=== PATIENT | female | born 1990 | race Caucasian/White ===

== ENCOUNTER 2017-06-25 14:52 | Emergency (ER) | payer OTHER ==
--- NOTE | 2017-06-25 15:18 | CPEKG ---
Heart Rate: 73 RR Interval: 822 P-R Interval: 140 QRSD Interval: 74 QT Interval: 392 QTC Interval: 432 P [place]: 38 QRS [place]: 51 T Wave [place]: 0 EKG Severity - NORMAL ECG - EKG Impression: SINUS RHYTHM Electronically Signed By: Jana Alvarez 25-Jun-2017 19:40:39
--- NOTE | 2017-06-25 16:09 | EDPHY ---
H & P Time Seen by Provider: 06/25/17 15:59 HPI/ROS: CHIEF COMPLAINT: Chest pain HISTORY OF PRESENT ILLNESS: 27-year-old female presents with chest pain. Onset of chest discomfort this morning while sitting at her desk. The pain is a pressure-like sensation throughout her chest. The pressure increases with deep inspiration. No associated symptoms and no known alleviating factors. No prior history of similar symptoms. She had a 24 hour Holter monitor and echocardiogram last week at [facility] because of palpitations. The results are pending. Cardiac risk factors negative. Nonsmoker; no family history; no hypertension, diabetes or hypercholesterolemia. REVIEW OF SYSTEMS: Constitutional: No fever, no chills Eyes: No visual changes ENT: No sore throat Respiratory: No cough, no shortness of breath Gastrointestinal: No nausea, no vomiting, no abdominal pain Genitourinary: no dysuria Musculoskeletal: No leg pain or swelling Skin: No rash Neurological: No headache, no weakness Psychiatric: No depression Past Medical/Surgical History: Denies Family history: No clotting disorder or cardiac disease Social History: Single, no recent alcohol PCP Dr. Billie Otero Smoking Status: Never smoked Physical Exam: General Appearance: Alert, pleasant Eyes: Pupils equal and round, no conjunctival pallor or injection ENT, Mouth: Mucous membranes moist Neck: Normal inspection Respiratory: Lungs are clear to auscultation Cardiovascular: Regular rate and rhythm, no murmur Gastrointestinal: Abdomen is soft and nontender Neurological: A&O, nonfocal, normal gait Skin: Warm and dry, no rash Extremities: Nontender, no pedal edema Psychiatric: Mood and affect normal Constitutional: Initial Vital Signs Temperature (C) 37.1 C 06/25/17 14:58 Heart Rate 81 06/25/17 14:58 Respiratory Rate 14 06/25/17 14:58 Blood Pressure 145/100 H 06/25/17 14:58 O2 Sat (%) 100 06/25/17 14:58 O2 Delivery Mode Room Air Allergies/Adverse Reactions: No Known Allergies Allergy (Unverified 07/22/12 14:52) Home Medications: Medication Instructions Recorded Medroxyprogesterone Acet 0 mg IM Q84D 05/21/14 [Depo-Provera] Medical Decision Making - Diagnostics EKG Interpretation: EKG reveals normal sinus rhythm, rate 73, normal axis and intervals, no ST or T- segment changes. INTERPRETATION: This is interpreted by me as a normal EKG. Imaging Results: Imaging Impressions Chest X-Ray 06/25/17 16:07 Impression: Negative chest. ED Course/Re-evaluation: This patient presents with atypical chest pain. After careful consideration and evaluation, I find no evidence of acute coronary syndrome. The patient has no risk factors for coronary disease, normal EKG and normal studies. In addition, I feel that I can safely exclude pulmonary embolism, with normal vital signs, normal oxygen saturation and normal D-dimer. In addition there is no evidence of pneumothorax, pneumonia, aortic dissection. Toradol 15 mg IV given for chest pain. Laboratory and x-ray results discussed with the patient. She feels much better on discharge and the chest discomfort has completely resolved. Differential Diagnosis: Differential diagnosis includes though it is not limited to pneumonia, pneumothorax, pulmonary embolism, aortic dissection, pericarditis, acute coronary syndrome. - Data Points Laboratory Results: Laboratory Results 06/25/17 16:10 06/25/17 16:10 06/25/17 06/25/17 06/25/17 16:10 16:10 16:10 WBC 5.59 10^3/uL 10^3/uL (3.80-9.50) RBC 4.23 10^6/uL 10^6/uL (4.18-5.33) Hgb 13.8 g/dL g/dL (12.6-16.3) Hct 39.4 % % (38.0-47.0) MCV 93.1 fL fL (81.5-99.8) MCH 32.6 pg pg (27.9-34.1) MCHC 35.0 g/dL g/dL (32.4-36.7) RDW 11.5 % % (11.5-15.2) Plt Count 225 10^3/uL 10^3/uL (150-400) MPV 9.9 fL fL (8.7-11.7) Neut % (Auto) 55.7 % % (39.3-74.2) Lymph % (Auto) 37.9 % % (15.0-45.0) Harmon % (Auto) 5.0 % % (4.5-13.0) Eos % (Auto) 0.7 % % (0.6-7.6) Baso % (Auto) 0.5 % % (0.3-1.7) Nucleat RBC Rel Count 0.0 % % (0.0-0.2) Absolute Neuts (auto) 3.11 10^3/uL 10^3/uL (1.70-6.50) Absolute Lymphs (auto) 2.12 10^3/uL 10^3/uL (1.00-3.00) Absolute Monos (auto) 0.28 10^3/uL L 10^3/uL (0.30-0.80) Absolute Eos (auto) 0.04 10^3/uL 10^3/uL (0.03-0.40) Absolute Basos (auto) 0.03 10^3/uL 10^3/uL (0.02-0.10) Absolute Nucleated RBC 0.00 10^3/uL 10^3/uL (0-0.01) Immature Gran % 0.2 % % (0.0-1.1) Immature Gran # 0.01 10^3/uL 10^3/uL (0.00-0.10) D-Dimer 0.27 ug/mLFEU ug/mLFEU (0.00-0.50) Sodium 142 mEq/L mEq/L (134-144) Potassium 4.5 mEq/L mEq/L (3.5-5.2) Chloride 108 mEq/L mEq/L (97-110) Carbon Dioxide 20 mEq/l L mEq/l (22-31) Anion Gap 14 mEq/L mEq/L (8-16) BUN 6 mg/dL L mg/dL (7-23) Creatinine 0.6 mg/dL mg/dL (0.6-1.0) Estimated GFR > 60 Glucose 86 mg/dL mg/dL (70-100) Calcium 9.9 mg/dL mg/dL (8.5-10.4) Departure - Departure Disposition: Home, Routine, Self-Care Clinical Impression: Chest pain Qualifiers: Chest pain type: precordial pain Qualified Code(s): R07.2 - Precordial pain Condition: Fair Instructions: Chest Pain (ED) Additional Instructions: Return for worsening symptoms or any concerns. Ibuprofen 600 mg 3 times daily while the pain persists. Referrals: Billie Otero MD [Primary Care Provider] - As per Instructions
[2017-06-25 16:26] LABS: % IMMATURE GRANULYOCYTES 0.2 % (0.0-1.1); ABSOLUTE IMMATURE GRANULOCYTES 0.01 10^3/uL (0.00-0.10); ADD DIFF? NO; ADD MORPH? NO; ADD SCAN? NO; ATYPICAL LYMPHOCYTE FLAG 10 (0-99); FRAGMENT RBC FLAG 0 (0-99); HEMATOCRIT 39.4 % (38.0-47.0); HEMOGLOBIN 13.8 g/dL (12.6-16.3); LEFT SHIFT FLG 0 (0-99); LIPEMIA HEMOLYSIS FLAG 90 (0-99); MEAN CELL HEMOGLOBIN 32.6 pg (27.9-34.1); MEAN CELL VOLUME 93.1 fL (81.5-99.8); MEAN PLATELET VOLUME 9.9 fL (8.7-11.7); PLATELET CLUMPS FLAG 0 (0-99); PLATELET COUNT 225 10^3/uL (150-400); RED BLOOD CELL COUNT 4.23 10^6/uL (4.18-5.33); RED CELL DISTRIBUTION WIDTH 11.5 % (11.5-15.2)
[2017-06-25 16:41] LABS: ANION GAP 14 mEq/L (8-16); CARBON DIOXIDE 20 mEq/l (22-31); CHLORIDE 108 mEq/L (97-110); GLUCOSE 86 mg/dL (70-100); POTASSIUM 4.5 mEq/L (3.5-5.2); SODIUM 142 mEq/L (134-144)
[2017-06-25 16:42] LABS: CALCIUM 9.9 mg/dL (8.5-10.4); CREATININE 0.6 mg/dL (0.6-1.0); GLOMERULAR FILTRATION RATE > 60
[2017-06-25] MEDS ORDERED: KETOROLAC 15 MG/1 ML SDV IVP ONE (16:55)
[2017-06-25 17:34] VITALS: BP 117/78; PULSE 81; RESP 16; TEMP 98.4; O2SAT 97
== END 2017-06-25 17:33 | disposition home or self-care (01) ==
DX: R07.2 Precordial pain (principal)
CPT/HCPCS: J1885